=== PATIENT | female | born 1950 | race Caucasian/White ===

== ENCOUNTER → 2016-09-08 | Outpatient (CLI) | payer MEDICARE, OTHER ==
[~2016-09-08] MED LIST: MOTRIN 200200 MG/TAB PO; PHARMASSURE GA500 MG PO; PRAVACHOL 40MG40 MG PO
== END ==
LOC: COL.VAS 12:09
DX: R06.02 Shortness of breath (principal); R42 Dizziness and giddiness; R53.83 Other fatigue; I34.0 Nonrheumatic mitral (valve) insufficiency; I27.0 Primary pulmonary hypertension

== ENCOUNTER → 2016-10-27 | Outpatient (CLI) | payer MEDICARE, OTHER | LOC: COL.PUL 10-07 10:00 | DX: R06.02 Shortness of breath (principal) ==

== ENCOUNTER 2016-11-27 06:35 | Day surgery (SDC) | payer MEDICARE, OTHER ==
[~2016-11-27] VITALS: Ht 165.1 cm; Wt 70.9 kg
[2016-11-27] VITALS (28 sets, daily range): BP systolic 66–134; BP diastolic 34–82; PULSE 49–66; TEMP 97.2–98
[2016-11-27 07:10] LABS: HEMATOCRIT 38.5 % (37.0-47.0); MEAN CELL VOLUME 88 fl (80.0-100.0); MEAN CORPUSCULAR HEMOGLOBIN 30 pg (27.0-31.0); MEAN CORPUSCULAR HGB CONC 34 g/dl (33.0-37.0); MEAN PLATELET VOLUME 9.8 fl (7.4-10.4); PLATELET COUNT 191 K/mm3 (130-400); RED BLOOD COUNT 4.39 M/mm3 (4.10-5.30); REDCELL DISTRIBUTION WIDTH-CV 12.3 % (11.5-14.5); WHITE BLOOD COUNT 5.5 K/mm3 (4.8-10.8)
[2016-11-27 07:13] LABS: INR 1.1 (0.8-3.0); PROTHROMBIN TIME 11.7 SECONDS (9.7-12.8)
[2016-11-27] MEDS ORDERED: PRAVACHOL 40MG40 MG PO (07:20)
[2016-11-27 07:21] LABS: CALCIUM 8.7 mg/dL (8.4-10.2); CREATININE, serum 0.66 mg/dL (0.52-1.25); POTASSIUM 3.9 mmol/L (3.4-5.0)
[2016-11-27] MEDS ORDERED: PHARMASSURE GA500 MG PO (07:21)
[2016-11-27] MEDS ORDERED: MOTRIN 200200 MG/TAB PO (07:22)
== END 2016-11-27 18:58 | disposition home or self-care (01) ==
LOC: COL.CAR 06:35
PROVIDERS: Internal Medicine Cardiovascular Disease
DX: I20.0 Unstable angina (principal); R06.00 Dyspnea, unspecified; I27.2 Other secondary pulmonary hypertension; I08.1 Rheumatic disorders of both mitral and tricuspid valves; E78.00 Pure hypercholesterolemia, unspecified
CPT/HCPCS: C1725; C1760; J2250; J3010; Q9967

== ENCOUNTER 2017-03-16 23:00 | Emergency (ER) | payer MEDICARE, OTHER ==
[~2017-03-16] VITALS: Ht 162.6 cm; Wt 71.8 kg
[2017-03-16 23:03] VITALS: TEMP 97
[2017-03-16] MEDS ORDERED: ESTROVEN MAX400 MCG PO (23:21)
[2017-03-17] MEDS ORDERED: PEPCID 20MG TAB20 MG PO (00:13)
[2017-03-17] MEDS ORDERED: PREDNISONE20 MG PO (00:13)
[2017-03-17 00:21] VITALS: BP 124/73; PULSE 90
== END 2017-03-17 00:21 | disposition home or self-care (01) ==
LOC: COL.ER 23:00
DX: T78.40XA Allergy, unspecified, initial encounter (principal); E78.5 Hyperlipidemia, unspecified
CPT/HCPCS: J7512

== ENCOUNTER → 2017-03-23 | Outpatient (CLI) | payer MEDICARE, OTHER ==
[~2017-03-23] MED LIST changes: +ESTROVEN MAX400 MCG PO; +PEPCID 20MG TAB20 MG PO; +PREDNISONE20 MG PO
== END ==
LOC: MC.RAD 11:31
DX: Z12.31 Encounter for screening mammogram for malignant neoplasm of breast (principal)

== ENCOUNTER 2017-11-07 12:31 | Emergency (ER) | payer MEDICARE, OTHER ==
[~2017-11-07] VITALS: Ht 165.1 cm; Wt 72.7 kg
[2017-11-07 12:37] VITALS: BP 133/68; TEMP 97.8
[2017-11-07] MEDS ORDERED: MOBIC 7.5MG7.5 MG PO (12:47)
[2017-11-07 13:57] LABS: COLLECTION METHOD CLEAN CATCH
[2017-11-07 14:06] LABS: MUCOUS Present /lpf; PH 8 (5-8); URINE APPEARANCE Hazy; URINE BACTERIA Rare /hpf; URINE BILIRUBIN Negative (NEGATIVE); URINE BLOOD Negative (NEGATIVE); URINE COLOR Yellow; URINE GLUCOSE Negative (NEGATIVE); URINE KETONE Negative (NEGATIVE); URINE LEUKOCYTE ESTERASE Negative (NEGATIVE); URINE NITRATE Negative (NEGATIVE); URINE PROTEIN(semi-quant) Negative (NEGATIVE); URINE RBC None Seen /hpf; URINE UROBILINOGEN Negative (NEGATIVE)
[2017-11-07 14:44] VITALS: PULSE 74
[2017-11-09] MEDS ORDERED: OMNICEF 300MG300 MG PO (00:05)
== END 2017-11-07 14:43 | disposition home or self-care (01) ==
LOC: COL.ER 12:31
PROVIDERS: Nurse Practitioner
DX: M54.5 Low back pain (principal)

== ENCOUNTER → 2018-06-27 | Outpatient (CLI) | payer MEDICARE, OTHER ==
[~2018-06-27] MED LIST changes: +MOBIC 7.5MG7.5 MG PO; +OMNICEF 300MG300 MG PO
== END ==
LOC: COL.RAD 13:11
DX: D25.9 Leiomyoma of uterus, unspecified (principal); N95.0 Postmenopausal bleeding; N39.0 Urinary tract infection, site not specified; Z79.890 Hormone replacement therapy

== ENCOUNTER → 2018-12-13 | Outpatient (CLI) | payer MEDICARE, OTHER | LOC: MHCPAIN 10:16 | DX: G89.29 Other chronic pain (principal); M47.817 Spondylosis without myelopathy or radiculopathy, lumbosacral region; M54.16 Radiculopathy, lumbar region; M53.3 Sacrococcygeal disorders, not elsewhere classified | CPT/HCPCS: G0463 ==

== ENCOUNTER → 2018-12-19 | Outpatient (CLI) | payer MEDICARE, OTHER | LOC: MHCPAIN 14:43 | DX: M47.817 Spondylosis without myelopathy or radiculopathy, lumbosacral region (principal); M54.16 Radiculopathy, lumbar region | CPT/HCPCS: J1100; Q9967 ==

== ENCOUNTER → 2019-01-03 | Outpatient (CLI) | payer MEDICARE, OTHER | LOC: MHCPAIN 12:23 | DX: G89.29 Other chronic pain (principal); M47.817 Spondylosis without myelopathy or radiculopathy, lumbosacral region; M54.16 Radiculopathy, lumbar region; M53.3 Sacrococcygeal disorders, not elsewhere classified; M48.061 Spinal stenosis, lumbar region without neurogenic claudication | CPT/HCPCS: G0463 ==

== ENCOUNTER → 2019-02-08 | Outpatient (CLI) | payer MEDICARE, OTHER | LOC: MHCPAIN 14:51 | DX: G89.29 Other chronic pain (principal); M47.817 Spondylosis without myelopathy or radiculopathy, lumbosacral region; M54.16 Radiculopathy, lumbar region; M53.3 Sacrococcygeal disorders, not elsewhere classified | CPT/HCPCS: G0463 ==

== ENCOUNTER → 2019-02-16 | Outpatient (CLI) | payer MEDICARE, OTHER | LOC: MHCPAIN 13:24 | DX: M47.817 Spondylosis without myelopathy or radiculopathy, lumbosacral region (principal); M54.16 Radiculopathy, lumbar region | CPT/HCPCS: J1100; Q9967 ==

== ENCOUNTER → 2019-03-01 | Outpatient (CLI) | payer MEDICARE, OTHER | LOC: MHCPAIN 13:57 | DX: G89.29 Other chronic pain (principal); M47.817 Spondylosis without myelopathy or radiculopathy, lumbosacral region; M54.16 Radiculopathy, lumbar region; M53.3 Sacrococcygeal disorders, not elsewhere classified; M48.061 Spinal stenosis, lumbar region without neurogenic claudication | CPT/HCPCS: G0463 ==

== ENCOUNTER → 2019-03-10 | Outpatient (CLI) | payer MEDICARE, OTHER | LOC: COL.RAD 14:24 | DX: M48.061 Spinal stenosis, lumbar region without neurogenic claudication (principal); M51.36 Other intervertebral disc degeneration, lumbar region; M12.88 Other specific arthropathies, not elsewhere classified, other specified site ==

== ENCOUNTER → 2019-05-08 | Outpatient (CLI) | payer MEDICARE, OTHER | LOC: MHCPAIN 09:58 | DX: M47.817 Spondylosis without myelopathy or radiculopathy, lumbosacral region (principal); M53.3 Sacrococcygeal disorders, not elsewhere classified | CPT/HCPCS: G0463 ==

== ENCOUNTER → 2019-05-15 | Outpatient (CLI) | payer MEDICARE, OTHER | LOC: MC.RAD 10:14 | DX: Z12.31 Encounter for screening mammogram for malignant neoplasm of breast (principal) ==

== ENCOUNTER → 2019-05-22 | Outpatient (CLI) | payer MEDICARE, OTHER | LOC: MHCPAIN 13:36 | DX: M54.5 Low back pain (principal) ==

== ENCOUNTER 2019-07-05 10:00 | Outpatient (RCR) | payer MEDICARE, OTHER | END 2019-08-08 | disposition still patient (30) | LOC: WSC | DX: M48.061 Spinal stenosis, lumbar region without neurogenic claudication (principal); M51.36 Other intervertebral disc degeneration, lumbar region; M43.16 Spondylolisthesis, lumbar region; M46.86 Other specified inflammatory spondylopathies, lumbar region ==

== ENCOUNTER → 2020-07-05 | Outpatient (CLI) | payer MEDICARE, OTHER | LOC: MC.RAD 07:58 | DX: N63.20 Unspecified lump in the left breast, unspecified quadrant (principal) ==

== ENCOUNTER → 2021-07-10 | Outpatient (CLI) | payer MEDICARE, OTHER | LOC: MC.RAD 09:37 | DX: Z12.31 Encounter for screening mammogram for malignant neoplasm of breast (principal) ==

== ENCOUNTER → 2023-10-20 | Outpatient (CLI) | payer MEDICARE, OTHER ==
[~2023-10-20] MED LIST changes: +PERCOCET 325 MG1 TA2 PO
== END ==
LOC: MC.RAD 08:20
DX: Z12.31 Encounter for screening mammogram for malignant neoplasm of breast (principal)

== ENCOUNTER 2023-12-06 10:30 | Emergency (ER) | payer MEDICARE, OTHER ==
[~2023-12-06] VITALS: Ht 162.6 cm; Wt 75.0 kg
[~2023-12-06 10:30] MED LIST changes: -PERCOCET 325 MG1 TA2 PO
[2023-12-06 10:32] VITALS: TEMP 98.3
[2023-12-06] MEDS ORDERED: PERCOCET 325 MG1 TA2 PO (11:58)
[2023-12-06 12:06] VITALS: BP 125/74; PULSE 60
== END 2023-12-06 12:12 | disposition home or self-care (01) ==
LOC: COL.ER 10:30
DX: M62.838 Other muscle spasm (principal); W01.198A Fall on same level from slipping, tripping and stumbling with subsequent striking against other object, initial encounter; Y93.89 Activity, other specified